=== PATIENT | male | born 1995 | race Caucasian/White ===

== ENCOUNTER 2017-08-27 22:02 | Emergency (ER) | payer BC ==
[~2017-08-27] VITALS: Ht 190.5 cm; Wt 108.4 kg
[~2017-08-27 22:02] MED LIST: EPP3/2 IM
[2017-08-27 22:07] VITALS: TEMP 37; Ht 190.5 cm; Wt 108.4 kg
[2017-08-27] MEDS ORDERED: DEXAMETHASONE SOD INJ 10 MG/ML VIAL IM STA (22:46)
[2017-08-27] MEDS ORDERED: DEXAMETHASONE INJ 10 MG in SYRINGE 0 ML IM STA (22:49)
--- NOTE | 2017-08-27 22:54 | EMERGENCY ROOM VISIT NOTE ---
History First contact with patient: 22:33 Chief Complaint: ALLERGIC REACTION Stated Complaint: ALLERGIC REACTION,HIVES Nursing Triage Summary: Patient with c/o of hives all over body. patient states he had a few hives yesterday and tonight within the last hour hives appeared on his wrists, forehead and feet and legs . Denies trouble breathing. History of Present Illness The patient is a 21 year old male who presents to the Emergency Room with complaints of hives. The patient states that he had a sudden onset of hives on his face, chest, neck and legs within the past one hour. The patient had a similar occurrence last night. He states that he did eat Thanksgiving dinner this evening and is unsure what was in it. The patient has a history of a nut allergy as a child. He denies any difficulty breathing, difficulty swallowing, nausea or vomiting. He denies any facial swelling. He denies any new detergent , soaps, lotions or other environmental exposures. Review of Systems A complete 10 point review of systems was reviewed with the patient with pertinent positives and negatives as per history of present illness. All else were negative. Family History No pertinent family history Social History Smoking Status: Never Smoker Drug Use: none Marital Status: single Housing Status: lives with roommate Occupation Status: [employer] student Current/Historical Medications Scheduled Epinephrine (Epipen), 0.3 MG IM UD Prednisone (Prednisone), 50 MG PO DAILY Scheduled PRN Epinephrine (Epipen), 0.3 MG IM UD PRN for ALLERGIC REACTION Physical Exam Vital Signs Date Time Temp Pulse Resp B/P (MAP) Pulse Ox O2 Delivery O2 Flow Rate FiO2 08/27/17 23:25 90 18 163/76 98 08/27/17 22:10 Room Air 08/27/17 22:07 37.0 83 16 152/90 97 Room Air Physical Exam VITALS: Vitals are noted on the nurse's note and reviewed by myself. Vital signs stable. GENERAL: This is a 21-year-old male, in no acute distress, nondiaphoretic, well- developed well-nourished. SKIN: There are several urticarial erythematous lesions over the right side of the forehead, right side of the neck, bilateral wrists and bilateral lower legs/ feet. EARS: External auditory canals clear, tympanic membranes pearly phelps without erythema or effusion bilaterally. EYES: Pupils equal round and reactive to light and accommodation. MOUTH: Mucous membranes moist. Airway patent. NECK: Supple without nuchal rigidity. No lymphadenopathy. HEART: Regular rate and rhythm without murmurs gallops or rubs. LUNGS: Clear to auscultation bilaterally without wheezes, rales or rhonchi. NEURO: Patient was alert and oriented to person place and time. Medical Decision & Procedures Medications Administered Medications (Trade) Dose Ordered Sig/Sarah Route Start Time Stop Time Status Last Admin Dose Admin Diphenhydramine HCl (Benadryl Cap) 50 mg NOW STAT PO 08/27/17 22:56 08/27/17 22:57 DC 08/27/17 23:08 50 MG Dexamethasone Sodium Phosphate (Decadron Inj) 10 mg ONE STAT IM 08/27/17 22:46 08/27/17 23:02 DC 08/27/17 23:09 10 MG Medical Decision Differential diagnosis includes urticaria, allergic rash, anaphylaxis, among others. The patient was evaluated as above. He does have multiple urticaria but fortunately no evidence of a more severe allergic reaction. He was given a dose of Decadron and will be given a prescription for prednisone. He was given oral Benadryl in the emergency department and was instructed to continue this as needed. He was instructed to follow-up with his primary care provider as needed for further evaluation. He was given a prescription for an EpiPen. He verbalized understanding of my assessment and treatment plan was discharged home in good condition. Medication Reconcilliation Current Medication List: was personally reviewed by dc Blood Pressure Screening Patient's blood pressure: Elevated blood pressure Blood pressure disposition: Referred to PCP Impression Primary Impression: Urticaria Departure Information Dispostion Home / Self-Care Condition GOOD Prescriptions Epinephrine (EPIPEN) 0.3 Mg/0.3 Ml Inj 0.3 MG IM UD, #1 BOX Prov: Mary Oates PA-C 08/27/17 Prednisone (Prednisone) 50 Mg Tab 50 MG PO DAILY for 4 Days, #4 TAB Prov: Mary Oates PA-C 08/27/17 Referrals No Doctor, Assigned (PCP) Patient Instructions My [facility] Additional Instructions You have been treated in the Emergency Department for an Allergic Reaction. You have been treated and monitored in the Emergency Department appropriately. You should take Benadryl (diphenhydramine) 25-50 mg orally every 4-6 hours until your symptoms have fully resolved. You may also take Zantac (ranitidine) 75 mg orally once daily for further improvement of symptoms. You have been prescribed Prednisone 40 mg to be taken orally once a day for the next 4 days. This is an anti-inflammatory medicine to be used to help minimize your symptoms. You should take the COMPLETE course of the medication. As with every Emergency Department visit, you should follow-up with your primary care provider in 2-3 days for reevaluation. Return to the Emergency Department if your current symptoms worsen despite treatment course outlined above, or if you develop any of the following symptoms : wheezing, tongue or face swelling, tightness in your throat, shortness of breath, or fainting.
[2017-08-27] MEDS ORDERED: EPP3/2 IM (22:56)
[2017-08-27] MEDS ORDERED: PRED50TA PO (22:56)
[2017-08-27] MEDS ORDERED: DEXAMETHASONE **PF** INJ 10 MG/ML VIAL ONE (23:04)
[2017-08-27 23:25] VITALS: BP 163/76; PULSE 90; O2SAT 98
== END 2017-08-27 23:25 | disposition home or self-care (01) ==
LOC: C.EDB 22:03 → C.EDC 23:25
DX: L50.9 Urticaria, unspecified (principal)